=== PATIENT | female | born 1945 | race African-American/Black ===

== ENCOUNTER → 2018-11-20 | Day surgery (SDC) | payer OTHER ==
[~2018-11-20] MED LIST: ACETAMINOPHEN 325 MG TABLET PO PRN; ALBUTEROL SULFATE 2.5 MG/3 ML NEBU. NEB PRN; AMLO10TA8 PO; ASPI81TA50 PO; ATROPINE 0.5 MG/5 ML DISP.SYRIN. IV PRN; CARV25TA2 PO; HYDR-2869 PO; IV RINGERS SOLUTION,LACTATED 1,000 ML IV SCH; LOSA50TA86 PO; METF10007 PO; MIDAZOLAM HCL PF 2 MG/2 ML VIAL. IV PRN; ONDANSETRON PF 4 MG/2 ML VIAL. IV PRN; PHENOL ORAL SPRAY 177ML BOTTLE. MM PRN; POTA20TA4 PO; PROPOFOL 40 ML IV ONE; diphenhydrAMINE 50 MG/ML VIAL IV PRN
[2018-11-20 09:40] VITALS: BP 169/81
--- NOTE | 2018-11-24 11:07 | PATHOLOGY ---
[facility] Accession Number: [id number] . 01 Material submitted: . colon - DESCENDING COLON. Modifiers: descending . 01 Clinical history: . Colonoscopy. . 02 Diagnosis: Descending colon, biopsy: - Tubular adenoma, negative for high grade dysplasia. . (MAP:[facility]; 11/23/2018) [facility] 11/23/2018 1720 Local . 02 Electronically signed: . Ventura Will MD, Pathologist NPI- [id number] . 01 Gross description: . Received in formalin labeled "Deonna, Janeth, descending colon" is a 0.4 x 0.3 x 0.1 cm fragment of bangura-brown mucosa. The specimen is submitted in A1. ([facility]; 11/22/2018) [facility] 11/22/2018 1209 Local . 02 Pathologist provided ICD-10: D12.4 . 02 CPT . 556478 Specimen Comment: A courtesy copy of this report has been sent to Specimen Comment: [phone]. Specimen Comment: Report sent to Performed at: 01 [facility] [address], [place] [id number] MD Salazar Hunter MD Phone: [phone] Performed at: [facility] [address] [id number] MD Iris Cannon MD Phone: [phone]
== END | disposition home or self-care (01) ==
LOC: SURG 07:06
PROVIDERS: ATTEND Internal Medicine Gastroenterology
DX: Z12.11 Encounter for screening for malignant neoplasm of colon (principal); D12.4 Benign neoplasm of descending colon; I10 Essential (primary) hypertension; E11.9 Type 2 diabetes mellitus without complications; Z79.899 Other long term (current) drug therapy; Z98.84 Bariatric surgery status; Z98.890 Other specified postprocedural states; Z90.710 Acquired absence of both cervix and uterus; Z86.73 Personal history of transient ischemic attack (TIA), and cerebral infarction without residual deficits; Z79.84 Long term (current) use of oral hypoglycemic drugs; Z79.82 Long term (current) use of aspirin
CPT/HCPCS: 45378; 82947; 88305; J2704; J7120